=== PATIENT | female | born 1965 | race Asian ===

== ENCOUNTER 2017-02-04 17:10 | Emergency (ER) | payer MEDICAID ==
--- NOTE | 2017-02-04 17:13 | EDPHY ---
H & P Constitutional: Initial Vital Signs Temperature (C) 36.7 C 02/04/17 17:19 Heart Rate 80 02/04/17 17:19 Respiratory Rate 18 02/04/17 17:19 Blood Pressure 131/91 H 02/04/17 17:19 O2 Sat (%) 97 02/04/17 17:19 O2 Delivery Mode Room Air Medical Decision Making ED Course/Re-evaluation: CHIEF COMPLAINT: Alcohol intoxication. HISTORY OF PRESENT ILLNESS: The patient is an 51 y/o female arriving via EMS for evaluation of dizziness after drinking one glass of wine almost 24 hours ago. She says she does not usually drink alcohol and after one glass last night she felt a little dizzy and fell. She denies any injuries from the fall, head strike, or loss of consciousness. She had a mild headache this morning and told her fiance she was going to drive home to [place] this afternoon. She felt normal, but her fiance freaked out and called EMS because he didn't think she should drive. She denies any current complaints and does not think she need to be here. She denies further alcohol use or co-ingestion. She is normally healthy. REVIEW OF SYSTEMS: A 10 point review of systems was performed and is negative with the exception of the elements mentioned in the history of present illness. PHYSICAL EXAM: General Appearance: Alert, well hydrated, appropriate, and non-toxic appearing. Head: Atraumatic without scalp tenderness or obvious injury Eyes: Pupils equal, round, reactive to light and accommodation, EOMI, no trauma , no injection. Ears: Clear bilaterally, no perforation, normal landmarks Nose: Atraumatic, no rhinorrhea, clear. Throat: There is no erythema or exudates, no lesions, normal tonsils, mucus membranes moist. Neck: Supple, nontender, no lymphadenopathy. Respiratory: No retractions, no distress, no wheezes, and no accessory muscle use. Lungs are clear to auscultation bilaterally. Cardiovascular: Regular rate and rhythm, no murmurs, rubs, or gallops. Good capillary refill all extremities. Gastrointestinal: Abdomen is soft, nontender, non-distended, no masses, no rebound, no guarding, no peritoneal signs. Musculoskeletal: Normal active ROM of all extremities, atraumatic. Neurological: Alert, appropriate, and interactive. Nonfocal neuro exam. Skin: No rashes, good turgor, no nodules on palpation. PAST MEDICAL HISTORY: Denies PAST SURGICAL HISTORY: Denies SOCIAL HISTORY: No alcohol use. Engaged. Lives in [place]. DIFFERENTIAL DIAGNOSIS: The differential diagnosis for the patient's headache included but was not limited to alcohol use, subarachnoid hemorrhage, migraine headache, tension headache and infectious causes such as meningitis, pharyngitis and sinusitis. MEDICAL DECISION MAKING: This is a healthy 51 y/o female who presents with no complaints at the recommendation of her fiance due to a mild headache this morning after drinking a glass of wine last night. She is currently completely asymptomatic and wants no further work up and would like to go home. Her exam is unremarkable. She will be discharged home with standard follow up and return precautions. She agrees with this plan. Departure - Departure Disposition: Home, Routine, Self-Care Clinical Impression: Dizziness Condition: Good Instructions: Dizziness (ED) Additional Instructions: Follow up with your primary care provider for unimproved symptoms over the next 2-3 days. Return to the ED for worsening of condition. Referrals: Patient,NotPresent [Primary Care Provider] - As per Instructions Evelina Felix MD [Medical Doctor] - As per Instructions Report Scribed for: Ray Vicente Report Scribed by: Kathleen Valadez Date of Report: 02/04/17 Time of Report: 17:28
[2017-02-04 18:16] VITALS: BP 146/82; PULSE 78; RESP 16; TEMP 98.6; O2SAT 98
== END 2017-02-04 18:16 | disposition home or self-care (01) ==
DX: R42 Dizziness and giddiness (principal)